=== PATIENT | female | born 1995 | race Caucasian/White ===

== ENCOUNTER 2017-01-01 22:33 | Emergency (ER) | payer OTHER ==
--- NOTE | 2017-01-01 22:49 | PDOC ---
History of Present Illness - General History Source: Patient Exam Limitations: No Limitations - History of Present Illness Initial Comments: 01/01/17 23:29 The patient is a 21 year old female presenting with her mother, with no significant past medical history, who presents to the emergency department with headache and fever for the past 2 days. She describes her headache as bilateral , ranging from mild to moderate, without radiation or modifying factors. She denies a history of migraines. She denies taking anything for the pain. She reports that her fever is subjective. The patient denies chest pain, shortness of breath and dizziness. Denies chills , nausea, vomit, diarrhea and constipation. Allergies: None Past surgical history: Appendectomy Social history: No alcohol, tobacco or drug use reported <Frandy Gupta - Last Filed: 01/01/17 23:28> <Chasidy Puri - Last Filed: 01/02/17 03:20> - General Chief Complaint: Headache Stated Complaint: HEADACHE Time Seen by Provider: 01/01/17 22:48 Past History <Frandy Gupta - Last Filed: 01/01/17 23:28> - Past Medical History Anemia: No Asthma: No Diabetes: No HTN: No - Surgical History Appendectomy: Yes - Immunization History TDAP Vaccination: Yes Immunization Up to Date: Yes - Psycho/Social/Smoking Cessation Hx Anxiety: No Suicidal Ideation: No Smoking Status: No Smoking History: Never smoked Have you smoked in the past 12 months: No Number of Cigarettes Smoked Daily: 0 Information on smoking cessation initiated: No Hx Alcohol Use: No Drug/Substance Use Hx: No Substance Use Type: None <Chasidy Puri - Last Filed: 01/02/17 03:20> - Past Medical History Allergies/Adverse Reactions: Allergies Allergy/AdvReac Type Severity Reaction Status Date / Time No Known Allergies Allergy Verified 01/01/17 22:35 Home Medications: Ambulatory Orders No Home Medications 0 dose .ROUTE UTDICT 09/05/12 Ibuprofen 800 mg PO TID #30 tablet 08/31/16 Ondansetron [Zofran *Odt*] 4 mg SL TID #30 od.tablet 08/31/16 Amox-Tr/K Cl [Augmentin - 875Mg Tablet] 1 tab PO BID #20 tablet 01/02/17 Review of Systems - Review of Systems Able to Perform ROS?: Yes Comments:: 01/01/17 23:29 GENERAL/CONSTITUTIONAL: (+)Fever. No chills. No weakness. HEAD, EYES, EARS, NOSE AND THROAT: No change in vision. No ear pain or discharge. No sore throat. CARDIOVASCULAR: No chest pain or shortness of breath RESPIRATORY: No cough, wheezing, or hemoptysis. GASTROINTESTINAL: No nausea, vomiting, diarrhea or constipation. GENITOURINARY: No dysuria, frequency, or change in urination. MUSCULOSKELETAL: No joint or muscle swelling or pain. No neck or back pain. SKIN: No rash NEUROLOGIC: (+)Headache. No vertigo, loss of consciousness, or change in strength/sensation. ENDOCRINE: No increased thirst. No abnormal weight change HEMATOLOGIC/LYMPHATIC: No anemia, easy bleeding, or history of blood clots. ALLERGIC/IMMUNOLOGIC: No hives or skin allergy. <Frandy Gupta - Last Filed: 01/01/17 23:28> *Physical Exam - Vital Signs Last Vital Signs Temp Pulse Resp BP Pulse Ox 98.9 F 86 17 141/82 100 01/01/17 22:35 01/01/17 22:35 01/01/17 22:35 01/01/17 22:35 01/01/17 22:35 - Physical Exam Comments: 01/01/17 23:32 GENERAL: Awake, alert, and fully oriented, in no acute distress HEAD: No signs of trauma, normocephalic, atraumatic EYES: PERRLA, EOMI, sclera anicteric, conjunctiva clear ENT: Auricles normal inspection, hearing grossly normal, nares patent, oropharynx clear without exudates. Moist mucosa NECK: Normal ROM, supple, no lymphadenopathy, JVD, or masses LUNGS: No distress, speaks full sentences, clear to auscultation bilaterally HEART: Regular rate and rhythm, normal S1 and S2, no murmurs, rubs or gallops, peripheral pulses normal and equal bilaterally. ABDOMEN: Soft, nontender, normoactive bowel sounds. No guarding, no rebound. No masses EXTREMITIES: Normal inspection, Normal range of motion, no edema. No clubbing or cyanosis. NEUROLOGICAL: Cranial nerves II through XII grossly intact. Normal speech, normal gait, no focal sensorimotor deficits SKIN: Warm, Dry, normal turgor, no rashes or lesions noted. <Frandy Gupta - Last Filed: 01/01/17 23:28> - Vital Signs Last Vital Signs Temp Pulse Resp BP Pulse Ox 98.9 F 86 17 141/82 100 01/01/17 22:35 01/01/17 22:35 01/01/17 22:35 01/01/17 22:35 01/01/17 22:35 <Chasidy Puri - Last Filed: 01/02/17 03:20> ED Treatment Course - LABORATORY CBC & Chemistry Diagram: 01/01/17 23:20 01/02/17 01:13 <Chasidy Puri - Last Filed: 01/02/17 03:20> Medical Decision Making - Medical Decision Making 01/02/17 03:08 21-year-old female presents with 2 days of nasal congestion, headache, fever Medical history noncontributory No known allergies Patient is alert and oriented 3, ambulating with ease, no rigidity, no photophobia Date nontraumatic, normocephalic Eyes pupils equal, reactive to light and accommodation, eomi Oropharynx is erythematous with no significant exudates Oropharynx, uvula is midline Tenderness over the maxillary sinuses Nares significant congestion Neck soft, no significant cervical radiculopathy, no nuchal rigidity Lungs are clear to auscultation Slight tachycardia Abdomen soft, nontender Extremities no edema, no cellulitis Skin there is no petechiae Neuro no gross focal neural deficits Headache resolved with IV fluids and Toradol Influenza negative- Rapid strep was negative IMP: ,sinusitis,URI <Chasidy Puri - Last Filed: 01/02/17 03:20> *DC/Admit/Observation/Transfer - Attestations Scribe Attestion: 01/01/17 23:32 Documentation prepared by Frandy Gupta, acting as medical transcription supervisor for Chasidy Puri MD <Frandy Gupta - Last Filed: 01/01/17 23:28> <Chasidy Puri - Last Filed: 01/02/17 03:20> Diagnosis at time of Disposition: URI (upper respiratory infection) Qualifiers: URI type: unspecified URI Qualified Code(s): J06.9 - Acute upper respiratory infection, unspecified Sinusitis Qualifiers: Sinusitis location: unspecified location Chronicity: acute Recurrence: non- recurrent Qualified Code(s): J01.90 - Acute sinusitis, unspecified - Discharge Dispostion Disposition: HOME Condition at time of disposition: Stable - Prescriptions Prescriptions: Amox-Tr/K Cl [Augmentin - 875Mg Tablet] 1 tab PO BID #20 tablet - Referrals Referrals: Nette Fields MD [Primary Care Provider] - - Patient Instructions Printed Discharge Instructions: DI for Sinusitis Additional Instructions: -please slate picker your prescription at your pharmacy -rest -take tylenol or motrin for fever and body aches -drink plenty of water -return for worsening symptoms including headache not relived with motrin or tylenol, persistent vomiting
[2017-01-01 22:50] VITALS: BMI 35.9
[2017-01-01] MEDS ORDERED: METOCLOPRAMIDE HCL INJECTION 10 MG/2 ML VIAL IVPB ONE (23:07)
[2017-01-01] MEDS ORDERED: SODIUM CHLORIDE 1,000 ML IV STA (23:07)
[2017-01-01] MEDS ORDERED: KETOROLAC TROMETHAMINE 30 MG/1 ML VIAL IVPUSH ONE (23:07)
[2017-01-01] MEDS ORDERED: KETOROLAC TROMETHAMINE 30 MG/1 ML VIAL ONE (23:32)
[2017-01-01] MEDS ORDERED: METOCLOPRAMIDE HCL INJECTION 10 MG/2 ML VIAL ONE (23:32)
[2017-01-01 23:39] LABS: BASOPHIL 0.5 % (0-2.0); EOSINOPHIL 0.2 % (0-4.5); MCH 28.6 pg (25.7-33.7); MCHC 33.1 g/dl (32.0-36.0); MEAN CELL VOLUME 86.6 fl (80-96); MEAN PLT VOLUME 8.7 fl (7.5-11.1); NEUTROPHILS 77.5 % (42.8-82.8); PLATELET COUNT 245 K/MM3 (134-434); RDW 13.9 % (11.6-15.6); WHITE BLOOD COUNT 16.6 K/mm3 (4.0-10.0)
[2017-01-01 23:52] LABS: URINE APPEARANCE CLEAR; URINE BILIRUBIN NEGATIVE (NEGATIVE); URINE COLOR YELLOW; URINE GLUCOSE (UA) NEGATIVE (NEGATIVE); URINE KETONE NEGATIVE (NEGATIVE); URINE LEUK ESTERASE NEGATIVE (NEGATIVE); URINE NITRITE NEGATIVE (NEGATIVE); URINE PROTEIN NEGATIVE (NEGATIVE); URINE UROBILINOGEN NEGATIVE E.U./dl (0.2-1.0)
[2017-01-01 23:55] LABS: URINE BLOOD 2+ (NEGATIVE)
[2017-01-02 00:01] LABS: URINE BACTERIA RARE /hpf (NONE SEEN); URINE MUCUS MODERATE; URINE RBC 24 /hpf (0-3); URINE WBC 2 /hpf (3-5)
[2017-01-02 01:45] LABS: ALBUMIN 3.2 g/dl (3.4-5.0); ALK PHOS 80 U/L (45-117); ANION GAP 9 (8-16); BILIRUBIN,TOTAL 0.5 mg/dL (0.2-1.0); CALCIUM 8.1 mg/dL (8.5-10.1); CO2 25 mmol/L (21-32); COCKROFT - GAULT 244.1795; CREATININE 0.5 mg/dL (0.55-1.02); GLUCOSE,RANDOM 87 mg/dL (74-106); SGOT/AST 15 U/L (15-37); SGPT/ALT 25 U/L (12-78); TOT PROT 6.2 g/dl (6.4-8.2)
[2017-01-02] MEDS ORDERED: CEFTRIAXONE 1 GM in DEXTROSE 5%-WATER - 100 ML IVPB ONE (02:58)
[2017-01-02] MEDS ORDERED: cefTRIAXone SODIUM 1 GM VIAL ONE (03:19)
[2017-01-02 03:34] VITALS: BP 119/70; PULSE 88; TEMP 98.3
== END 2017-01-02 03:33 | disposition home or self-care (01) ==
LOC: JER 22:33
PROC: 3E033GC Introduction of Other Therapeutic Substance into Peripheral Vein, Percutaneous Approach (ICD-10-PCS; principal; 2017-01-01)
PROC: 3E033GC Introduction of Other Therapeutic Substance into Peripheral Vein, Percutaneous Approach (ICD-10-PCS; 2017-01-01)
PROC: 3E03329 Introduction of Other Anti-infective into Peripheral Vein, Percutaneous Approach (ICD-10-PCS; 2017-01-01)
PROC: 3E0333Z Introduction of Anti-inflammatory into Peripheral Vein, Percutaneous Approach (ICD-10-PCS; 2017-01-01)
DX: J01.90 Acute sinusitis, unspecified (principal); J06.9 Acute upper respiratory infection, unspecified
CPT/HCPCS: 36415; 80053; 81003; 81015; 84703; 85025; 87070; 87430; 87804; 96365; 96375; 99282-25

== ENCOUNTER 2017-01-25 11:36 | Emergency (ER) | payer OTHER ==
[2017-01-25 11:46] VITALS: TEMP 98.1; BMI 34.7
[2017-01-25] MEDS ORDERED: METOCLOPRAMIDE HCL INJECTION 10 MG/2 ML VIAL ONE (12:46)
[2017-01-25] MEDS ORDERED: METOCLOPRAMIDE HCL INJECTION 10 MG/2 ML VIAL IVPB ONE (13:01)
[2017-01-25] MEDS ORDERED: SODIUM CHLORIDE 0.9% 1000 ML INFUS.BAG IV ONE (13:04)
--- NOTE | 2017-01-25 13:36 | PDOC ---
History of Present Illness - General Chief Complaint: Vomiting/Diarrhea Stated Complaint: VOMITING Time Seen by Provider: 01/25/17 12:39 History Source: Patient Exam Limitations: No Limitations - History of Present Illness Initial Comments: 01/25/17 13:31 This patient is a 21-year-old female with no significant past medical history presented to emergency department with a complaint of nausea, vomiting, diarrhea. Patient states she was in her usual state of health until midnight last night when she noted dyspepsia and vomited. She was able to sleep through the night but awoke this morning stating she felt nauseous here In total she had 3 episodes of nonbilious emesis. No blood. Patient has had 2 episodes of diarrhea, nonbloody and nonmucoid. No recent travel. No ill contacts. PMH: Denies PSH: Appendectomy at age 13 Medications: Denies A LL: NKDA Social: Denies alcohol drug or cigarette use GENERAL/CONSTITUTIONAL: No: fever, chills, weakness, loss of appetite. HEAD, EYES, EARS, NOSE AND THROAT: No: change in vision, ear pain, discharge, sore throat, throat swelling. CARDIOVASCULAR: No: chest pain, lightheadedness, palpitations, syncope RESPIRATORY: No: cough, shortness of breath, wheezing, hemoptysis, stridor. GASTROINTESTINAL: Yes: nausea, vomiting, diarrhea No: abdominal pain GENITOURINARY: No: dysuria, hematuria, frequency, urgency, flank pain. MUSCULOSKELETAL: No: back pain, neck pain, joint pain, muscle swelling or pain SKIN AND BREASTS: No: lesions, pallor, rash or easy bruising. NEUROLOGIC: No: headache, vertigo, paresthesias, weakness ENDOCRINE: No: unexplained weight gain or loss HEMATOLOGIC/LYMPHATIC: No: anemia, easy bleeding, swelling nodes. GENERAL: The patient is in no acute distress. HEAD: Normal with no signs of trauma. EYES: PERRLA, EOMI, sclera anicteric, conjunctiva clear. ENT: Ears normal, nares patent, oropharynx clear without exudates. Dry mucous membranes. NECK: Normal range of motion, supple without lymphadenopathy, JVD, or masses. LUNGS: Breath sounds equal, clear to auscultation bilaterally. No wheezes, and no crackles. HEART:Regular rate and rhythm, normal S1 and S2 without murmur, rub or gallop. ABDOMEN: Soft, nontender, normoactive bowel sounds. No guarding, no rebound. EXTREMITIES: Normal range of motion, no edema. No clubbing or cyanosis. No erythema, or tenderness. NEUROLOGICAL: Cranial nerves II through XII grossly intact. Normal speech. No focal neurological deficits. MUSCULOSKELETAL: Back non-tender to palpation, no CVA tenderness SKIN: Warm, Dry, normal turgor, no rashes or lesions noted. 01/27/17 00:31 Past History - Past Medical History Allergies/Adverse Reactions: Allergies Allergy/AdvReac Type Severity Reaction Status Date / Time No Known Allergies Allergy Verified 01/25/17 11:43 Home Medications: Ambulatory Orders Ondansetron HCl [Zofran] 4 mg PO BID PRN #10 tablet 01/25/17 Anemia: No Asthma: No Diabetes: No HTN: No Other medical history: NONE - Surgical History Appendectomy: Yes - Reproductive History Is Patient Now?: No - Immunization History TDAP Vaccination: Yes Immunization Up to Date: Yes - Psycho/Social/Smoking Cessation Hx Anxiety: No Suicidal Ideation: No Smoking Status: No Smoking History: Never smoked Have you smoked in the past 12 months: No Number of Cigarettes Smoked Daily: 0 Information on smoking cessation initiated: No Hx Alcohol Use: No Drug/Substance Use Hx: No Substance Use Type: None *Physical Exam - Vital Signs Last Vital Signs Temp Pulse Resp BP Pulse Ox 98.1 F 88 18 118/52 100 01/25/17 11:43 01/25/17 11:43 01/25/17 11:43 01/25/17 11:43 01/25/17 11:43 ED Treatment Course - LABORATORY CBC & Chemistry Diagram: 01/25/17 13:50 01/25/17 13:50 - Medications Given in the ED: ED Medications Discontinued Medications Generic Name Dose Route Start Last Admin Trade Name Freq PRN Reason Stop Dose Admin Metoclopramide HCl 10 mg 01/25/17 13:01 01/25/17 13:02 Reglan Injection - IVPB 01/25/17 13:02 10 mg NOW ONE Administration Sodium Chloride 1,000 ml 01/25/17 13:04 01/25/17 13:05 Normal Saline - IV 01/25/17 13:05 1,000 ml NOW ONE Administration Medical Decision Making - Medical Decision Making 01/25/17 13:36 DD: colitis, enteritis, gastroenteritis, cholecystitis, gastritis, gastric ulcer Will do basic labs Will give Zofran Will give IV Fluids Will re assess 01/25/17 14:31 Laboratory Tests 01/25/17 01/25/17 13:40 13:50 WBC 8.5 D Hgb 12.9 Hct 38.4 Plt Count 289 Urine Blood 2+ H Urine Nitrite Negative Urine RBC 140 Urine WBC 3 01/25/17 15:06 Laboratory Tests 01/25/17 13:50 Sodium 144 Potassium 4.2 Chloride 109 H Carbon Dioxide 26 BUN 8 D Creatinine 0.6 Random Glucose 87 AST 25 D ALT 38 D Albumin 3.6 Lipase 84 Pt states she feels better Will discharge to home can discharge with Zofran Clinical Impression: Gastroenteritis 01/27/17 00:31 *DC/Admit/Observation/Transfer Diagnosis at time of Disposition: Gastroenteritis - Discharge Dispostion Disposition: HOME Condition at time of disposition: Stable Admit: No - Prescriptions Prescriptions: Ondansetron HCl [Zofran] 4 mg PO BID PRN #10 tablet PRN Reason: Nausea - Referrals Referrals: Nette Fields MD [Primary Care Provider] - - Patient Instructions Printed Discharge Instructions: DI for Viral Gastroenteritis -- Adult, Gastroenteritis Diet Additional Instructions: Thank you for coming in to the ER today Please return to the ER for any other concerns or complaints Please modify your diet to avoid heavy, greasy foods Please monitor yourself for fevers - Post Discharge Activity Work/School Note: Back to Work
[2017-01-25 13:58] LABS: BASOPHIL 0.8 % (0-2.0); EOSINOPHIL 0.5 % (0-4.5); MCH 29.3 pg (25.7-33.7); MCHC 33.6 g/dl (32.0-36.0); MEAN CELL VOLUME 87.2 fl (80-96); MEAN PLT VOLUME 8.9 fl (7.5-11.1); NEUTROPHILS 72.7 % (42.8-82.8); PLATELET COUNT 289 K/MM3 (134-434); RDW 14.4 % (11.6-15.6); WHITE BLOOD COUNT 8.5 K/mm3 (4.0-10.0)
[2017-01-25 14:04] LABS: URINE APPEARANCE CLEAR; URINE BILIRUBIN NEGATIVE (NEGATIVE); URINE COLOR LTYELLOW; URINE GLUCOSE (UA) NEGATIVE (NEGATIVE); URINE KETONE NEGATIVE (NEGATIVE); URINE LEUK ESTERASE NEGATIVE (NEGATIVE); URINE NITRITE NEGATIVE (NEGATIVE); URINE PROTEIN NEGATIVE (NEGATIVE); URINE UROBILINOGEN NEGATIVE E.U./dl (0.2-1.0)
[2017-01-25 14:05] LABS: URINE BLOOD 2+ (NEGATIVE)
[2017-01-25 14:07] LABS: URINE MUCUS RARE; URINE RBC 140 /hpf (0-3); URINE WBC 3 /hpf (3-5)
[2017-01-25 14:34] LABS: ALBUMIN 3.6 g/dl (3.4-5.0); ALK PHOS 92 U/L (45-117); ANION GAP 9 (8-16); BILIRUBIN,TOTAL 0.3 mg/dL (0.2-1.0); CALCIUM 8.9 mg/dL (8.5-10.1); CO2 26 mmol/L (21-32); COCKROFT - GAULT 203.4815; CREATININE 0.6 mg/dL (0.55-1.02); GLUCOSE,RANDOM 87 mg/dL (74-106); SGOT/AST 25 U/L (15-37); SGPT/ALT 38 U/L (12-78); TOT PROT 7.3 g/dl (6.4-8.2)
[2017-01-25 16:07] VITALS: BP 117/74; PULSE 74
== END 2017-01-25 16:06 | disposition home or self-care (01) ==
LOC: JER 11:36
PROC: 3E033GC Introduction of Other Therapeutic Substance into Peripheral Vein, Percutaneous Approach (ICD-10-PCS; principal; 2017-01-25)
DX: K52.9 Noninfective gastroenteritis and colitis, unspecified (principal)
CPT/HCPCS: 36415; 80053; 81003; 81015; 83690; 84703; 85025; 96374; 99283-25

== ENCOUNTER 2017-03-22 13:40 | Emergency (ER) | payer OTHER ==
[2017-03-22 13:47] VITALS: BMI 33.6
--- NOTE | 2017-03-22 14:04 | PDOC ---
History of Present Illness - General Chief Complaint: Headache Stated Complaint: FEVER/HEADACHE/WEAKNESS/BACK PAIN Time Seen by Provider: 03/22/17 14:03 Past History - Past Medical History Allergies/Adverse Reactions: Allergies Allergy/AdvReac Type Severity Reaction Status Date / Time No Known Allergies Allergy Verified 03/22/17 13:47 Home Medications: Ambulatory Orders NK [No Known Home Medication] 03/22/17 Anemia: No Asthma: No Diabetes: No HTN: No - Surgical History Appendectomy: Yes - Immunization History TDAP Vaccination: Yes Immunization Up to Date: Yes - Psycho/Social/Smoking Cessation Hx Anxiety: No Suicidal Ideation: No Smoking Status: No Smoking History: Never smoked Have you smoked in the past 12 months: No Number of Cigarettes Smoked Daily: 0 Information on smoking cessation initiated: No Hx Alcohol Use: No Drug/Substance Use Hx: No Substance Use Type: None *Physical Exam - Vital Signs Last Vital Signs Temp Pulse Resp BP Pulse Ox 102.7 F H 118 H 18 125/85 99 03/22/17 13:44 03/22/17 13:44 03/22/17 13:44 03/22/17 13:44 03/22/17 13:44 ED Treatment Course - LABORATORY CBC & Chemistry Diagram: 03/22/17 15:50 03/22/17 15:50 *DC/Admit/Observation/Transfer - Referrals Referrals: Nette Fields MD [Primary Care Provider] -
--- NOTE | 2017-03-22 14:34 | PDOC ---
Attending Attestation - Resident Resident Name: Gem Monte - ED Attending Attestation I have performed the following: I have examined & evaluated the patient, The case was reviewed & discussed with the resident, I agree w/resident's findings & plan, Exceptions are as noted - HPI HPI: 03/22/17 16:40 21y F presenting with fever, pounding mid headache that is nonradiating, lower back pain and body aches for the past few days. pt dnies any neck pain, stiffness, numbness/tingling/weakness, cough, nasal congestion, dysuria, hematuria. vitals noted fore fever/tachycardia. on exam pt is well appearing, in no acute distress. negative brudzinski/kernigs. pt has mild tenderness in the lower back without fluctuance, erythema, induration. suspect viral syndrome consider possible pyelonephritis also consider meningitis with headache/fever, however no menigitic symtoms. awaiting lab work 03/22/17 17:48 pt signed out to dr. Raymond to fu with results and erassess the pt - Physicial Exam PE: 03/23/17 17:49 see above - Medical Decision Making 03/23/17 17:49 see above
[2017-03-22] MEDS ORDERED: ACETAMINOPHEN 325 MG TABLET (FP) PO ONE (14:40)
[2017-03-22] MEDS ORDERED: SODIUM CHLORIDE 1,000 ML IV ONE ×2 (14:42→17:39)
[2017-03-22] MEDS ORDERED: ACETAMINOPHEN 325 MG TABLET (FP) ONE (15:38)
--- NOTE | 2017-03-22 15:59 | PDOC ---
History of Present Illness - General Chief Complaint: Headache Stated Complaint: FEVER/HEADACHE/WEAKNESS/BACK PAIN Time Seen by Provider: 03/22/17 14:03 History Source: Patient Exam Limitations: No Limitations - History of Present Illness Initial Comments: This is a 21 yo female with h/o seasonal allergies and sinus headache who presents with headache, low back pain, and fever to 101 at home worsening for the past four days. She notes 9/10 throbbing headache to the whole top of her head radiating down to the low back, which is worsened by light and noise. It is not positional and not worse in the morning when she awakens. She notes that the back pain is located in the spine, and she has associated numbness of the outside of the thighs on both sides. She denies any vision changes, rash, urinary retention, incontinence of bladder or bowel, focal weakness, tingling, or additional numbness. She also denies any other recent symptoms of illness ( no cough, sore throat, runny nose, shortness of breath, chest pain, nausea, vomiting, abdominal pain, constipation, or diarrhea except for one minor episode of diarrhea this morning). She has had no recent travel outside of the [place], she was [place] in the , she is up to date on all immunizations, and she has had no recent sick contacts. Past History - Travel Traveled outside of the country in the last 30 days: No Close contact w/someone who was outside of country & ill: No - Past Medical History Allergies/Adverse Reactions: Allergies Allergy/AdvReac Type Severity Reaction Status Date / Time No Known Allergies Allergy Verified 03/22/17 13:47 Home Medications: Ambulatory Orders NK [No Known Home Medication] 03/22/17 Anemia: No Asthma: No Diabetes: No HTN: No - Surgical History Appendectomy: Yes - Immunization History TDAP Vaccination: Yes Immunization Up to Date: Yes - Psycho/Social/Smoking Cessation Hx Anxiety: No Suicidal Ideation: No Smoking Status: No Smoking History: Never smoked Have you smoked in the past 12 months: No Number of Cigarettes Smoked Daily: 0 Information on smoking cessation initiated: No Hx Alcohol Use: No Drug/Substance Use Hx: No Substance Use Type: None Review of Systems - Review of Systems Able to Perform ROS?: Yes Constitutional: Yes: Chills, Fever, Loss of Appetite, Malaise. No: Unexplained wgt Loss HEENTM: No: Eye Pain, Blurred Vision, Recent change in vision, Double Vision, Nose Congestion, Throat Pain Respiratory: No: Cough, Shortness of Breath Cardiac (ROS): Yes: Lightheadedness (mild when she stands). No: Chest Pain, Palpitations ABD/GI: Yes: Diarrhea (one mild episode today only). No: Constipated, Nausea, Vomiting : No: Burning, Dysuria, Incontinence, Pain, Urgency Musculoskeletal: Yes: Back Pain. No: Neck Pain Integumentary: No: Bruising, Rash Neurological: Yes: Headache, Numbness (outside of thighs). No: Tingling, Weakness Endocrine: No: Unexplained Weight Gain, Unexplained Weight Loss *Physical Exam - Vital Signs Last Vital Signs Temp Pulse Resp BP Pulse Ox 102.7 F H 118 H 18 125/85 99 03/22/17 13:44 03/22/17 13:44 03/22/17 13:44 03/22/17 13:44 03/22/17 13:44 - Physical Exam General Appearance: Yes: Nourished, Appropriately Dressed, Mild Distress, Other (alert, oriented, conversive and pleasant young woman answering appropriately) HEENT: positive: EOMI, Normal Voice, Hearing Grossly Normal, Other (no frontal or maxillary tenderness to palpation or percussion). negative: Scleral Icterus (R), Scleral Icterus (L), Nasal Congestion Neck: positive: Trachea midline, Supple, Tender midline. negative: Tender, Rigid, Decreased range of motion, Lymphadenopathy (R), Lymphadenopathy (L) Respiratory/Chest: positive: Lungs Clear, Normal Breath Sounds. negative: Respiratory Distress, Crackles, Rhonchi, Stridor, Wheezing Cardiovascular: positive: Regular Rhythm, Regular Rate. negative: Murmur Gastrointestinal/Abdominal: positive: Normal Bowel Sounds, Soft. negative: Tender, Organomegaly, Pulsatile Mass, Guarding Musculoskeletal: positive: Normal Inspection, Vertebral Tenderness (mild lumbar) . negative: Decreased Range of Motion Extremity: positive: Normal Capillary Refill, Normal Inspection, Normal Range of Motion. negative: Tender, Cyanosis Integumentary: positive: Normal Color, Dry, Warm. negative: Erythema, Rash, Bruising Neurologic: positive: sales representative groceries II-XII NML intact, Fully Oriented, Alert, Normal Mood/ Affect, Normal Response, Motor Strength 5/5 ED Treatment Course - LABORATORY CBC & Chemistry Diagram: 03/22/17 15:50 03/22/17 15:50 Comment: ESR 44 - ADDITIONAL ORDERS Additional order review: CT head without e/o acute intracranial pathology. Medical Decision Making - Medical Decision Making 21 yo female with 4 day h/o fever, headache, and back pain. Without any other symptoms of illness (no cold sxs, UTI sxs, viral syndome sxs except diarrhea x1 today). Exam with mild tenderness to palpation of midline lumbar spine, no neurological exam abnormalities. Concerning symptoms for AL include the patient's fever, but no additional red flags. Ddx includes AL secondary to fever, sinusitis, migraine, tension AL, meningitis , encephalitis, viral syndrome. Ordered are CBC, CMP, beta-hCG, UA, head CT without contrast. Patient self-dosed with Motrin at about 12:20pm, so given Tylenol initially in the ED. 03/22/17 18:34 AL improved initially but Pt reports recurrence, given Reglan and Motrin is ordered. ESR is 44 and WBC is 10.5, opting to move forward with head CT. 03/22/17 19:19 Pt signed out to excellent Dr. Ezra Venegas. *DC/Admit/Observation/Transfer Diagnosis at time of Disposition: Headache Qualifiers: Headache type: unspecified Headache chronicity pattern: acute headache Intractability: not intractable Qualified Code(s): R51 - Headache Fever Qualifiers: Fever type: unspecified Qualified Code(s): R50.9 - Fever, unspecified Back pain Qualifiers: Back pain location: low back pain Chronicity: acute Back pain laterality: unspecified Sciatica presence: unspecified whether sciatica present Qualified Code(s): M54.5 - Low back pain - Referrals Referrals: Nette Fields MD [Primary Care Provider] - - Attestations Physician Attestion: 03/22/17 16:10 I, Dr. Gem Monte, attest that this document has been prepared under my direction and personally reviewed by me in its entirety. I further attest, that it accurately reflects all work, treatment, procedures and medical decision -making performed by me.
[2017-03-22 16:00] LABS: BASOPHIL 0.6 % (0-2.0); EOSINOPHIL 0.1 % (0-4.5); MCH 28.9 pg (25.7-33.7); MCHC 33.9 g/dl (32.0-36.0); MEAN CELL VOLUME 85.3 fl (80-96); MEAN PLT VOLUME 8.4 fl (7.5-11.1); NEUTROPHILS 82.6 % (42.8-82.8); PLATELET COUNT 229 K/MM3 (134-434); RDW 13.8 % (11.6-15.6); WHITE BLOOD COUNT 10.5 K/mm3 (4.0-10.0)
[2017-03-22 16:18] LABS: INR 1.17 (0.82-1.09); PROTHROMBIN TIME (PATIENT) 12.9 SEC (9.98-11.88)
[2017-03-22 17:14] LABS: URINE APPEARANCE SLCLOUDY; URINE BILIRUBIN NEGATIVE (NEGATIVE); URINE BLOOD 3+ (NEGATIVE); URINE COLOR YELLOW; URINE GLUCOSE (UA) NEGATIVE (NEGATIVE); URINE KETONE NEGATIVE (NEGATIVE); URINE LEUK ESTERASE TRACE (NEGATIVE); URINE NITRITE NEGATIVE (NEGATIVE); URINE UROBILINOGEN NEGATIVE mg/dL (0.2-1.0)
[2017-03-22] MEDS ORDERED: METOCLOPRAMIDE HCL INJECTION 10 MG/2 ML VIAL IVPUSH ONE (17:38)
[2017-03-22 17:43] LABS: URINE PROTEIN 1+ (NEGATIVE)
[2017-03-22 17:51] LABS: URINE BACTERIA RARE /hpf (NONE SEEN); URINE MUCUS FEW; URINE RBC 10 /hpf (0-3); URINE WBC 8 /hpf (3-5)
[2017-03-22] MEDS ORDERED: IBUPROFEN 600 MG TABLET (FP) PO ONE ×2 (18:13→20:55)
[2017-03-22] MEDS ORDERED: METOCLOPRAMIDE HCL INJECTION 10 MG/2 ML VIAL ONE (18:14)
[2017-03-22 19:38] VITALS: BP 132/81; PULSE 90; TEMP 100
--- NOTE | 2017-03-22 19:46 | PDOC ---
*Physical Exam - Vital Signs Last Vital Signs Temp Pulse Resp BP Pulse Ox 102.7 F H 118 H 18 125/85 99 03/22/17 13:44 03/22/17 13:44 03/22/17 13:44 03/22/17 13:44 03/22/17 13:44 ED Treatment Course - LABORATORY CBC & Chemistry Diagram: 03/22/17 15:50 03/22/17 15:50 - ADDITIONAL ORDERS Additional order review: Laboratory Results 03/22/17 03/22/17 16:08 15:50 INR 1.17 H Urine Color Yellow Urine Appearance Slcloudy Urine pH 5.0 D Urine Protein 1+ H Urine Glucose (UA) Negative Urine Ketones Negative Urine Blood 3+ H Urine Nitrite Negative Urine Bilirubin Negative Urine Urobilinogen Negative Ur Leukocyte Esterase Trace Urine RBC 10 Urine WBC 8 Ur Epithelial Cells Rare Urine Bacteria Rare Urine Mucus Few Urine HCG, Qual Negative 03/22/17 15:50 RBC 4.76 MCV 85.3 MCHC 33.9 RDW 13.8 MPV 8.4 Neutrophils % 82.6 Lymphocytes % 7.8 L D Monocytes % 8.9 Eosinophils % 0.1 Basophils % 0.6 - Medications Given in the ED: ED Medications Discontinued Medications Generic Name Dose Route Start Last Admin Trade Name Freq PRN Reason Stop Dose Admin Acetaminophen 650 mg 03/22/17 14:40 03/22/17 15:50 Tylenol - PO 03/22/17 14:41 650 mg ONCE ONE Administration Sodium Chloride 1,000 mls @ 1,000 mls/hr 03/22/17 14:42 03/22/17 15:40 Normal Saline - IV 03/22/17 15:41 1,000 mls/hr .Q1H ONE Administration Sodium Chloride 1,000 mls @ 1,000 mls/hr 03/22/17 17:39 03/22/17 18:23 Normal Saline - IV 03/22/17 18:38 1,000 mls/hr .Q1H ONE Administration Metoclopramide HCl 10 mg 03/22/17 17:38 03/22/17 18:23 Reglan Injection - IVPUSH 03/22/17 17:39 10 mg ONCE ONE Administration Medical Decision Making - Medical Decision Making 03/22/17 19:[address] Monte. Patient came in with temp 103, brought down w / tylenol, currently deciding on next action for white count and elevated ESR. 03/22/17 19:49 03/22/17 22:57 LP performed to R/O meningitis 03/23/17 00:11 LP Normal - discharging to home with motrin for pain control *DC/Admit/Observation/Transfer Diagnosis at time of Disposition: Headache Qualifiers: Headache type: unspecified Headache chronicity pattern: acute headache Intractability: not intractable Qualified Code(s): R51 - Headache Fever Qualifiers: Fever type: unspecified Qualified Code(s): R50.9 - Fever, unspecified Back pain Qualifiers: Back pain location: low back pain Chronicity: acute Back pain laterality: unspecified Sciatica presence: unspecified whether sciatica present Qualified Code(s): M54.5 - Low back pain - Discharge Dispostion Disposition: HOME - Prescriptions Prescriptions: Ibuprofen [Motrin -] 600 mg PO QID PRN #20 tablet PRN Reason: Pain Level 6-10 - Referrals Referrals: Nette Fields MD [Primary Care Provider] - - Patient Instructions Printed Discharge Instructions: DI for Migraine, Migraine -- Adult - Post Discharge Activity - Attestations Physician Attestion: 03/23/17 00:12 I, Dr. Ezra Venegas, attest that this document has been prepared under my direction and personally reviewed by me in its entirety. I further attest, that it accurately reflects all work, treatment, procedures and medical decision -making performed by me. Procedures - Lumbar Puncture Indication: Meningitis CT Scan: Yes Betadine Prep: Yes Position: Sitting Site: L4-L51 Local Anesthesia: 1% Lidocaine with epi Volume(ml): 5 ((Without Epi)) Lumbar Puncture Kit: Adult Traumatic Tap: Yes Tubes Obtained: 4 Clear Fluid: Yes Complications: No
[2017-03-22 20:00] LABS: ALBUMIN 3.7 g/dl (3.4-5.0); ANION GAP 8 (8-16); BILIRUBIN,TOTAL 0.4 mg/dL (0.2-1.0); CALCIUM 8.8 mg/dL (8.5-10.1); CO2 24 mmol/L (21-32); CREATININE 0.8 mg/dL (0.55-1.02); GLUCOSE,RANDOM 98 mg/dL (74-106); SGOT/AST 31 U/L (15-37); SGPT/ALT 42 U/L (12-78); TOT PROT 8.1 g/dl (6.4-8.2)
[2017-03-22 20:01] LABS: ALK PHOS 98 U/L (45-117)
--- NOTE | 2017-03-22 22:50 | PDOC ---
*Physical Exam - Vital Signs Last Vital Signs Temp Pulse Resp BP Pulse Ox 100 F H 90 18 132/81 100 03/22/17 18:35 03/22/17 18:35 03/22/17 18:35 03/22/17 18:35 03/22/17 18:35 ED Treatment Course - LABORATORY CBC & Chemistry Diagram: 03/22/17 15:50 03/22/17 15:50 - ADDITIONAL ORDERS Additional order review: Laboratory Results 03/22/17 03/22/17 03/22/17 16:08 15:50 15:50 INR 1.17 H Sodium 136 Potassium 3.9 Chloride 104 Carbon Dioxide 24 Anion Gap 8 BUN 6 L D Creatinine 0.8 D Creat Clearance w eGFR > 60 Random Glucose 98 Calcium 8.8 Total Bilirubin 0.4 D AST 31 D ALT 42 Alkaline Phosphatase 98 Total Protein 8.1 Albumin 3.7 Urine Color Yellow Urine Appearance Slcloudy Urine pH 5.0 D Ur Specific [place] 1.025 Urine Protein 1+ H Urine Glucose (UA) Negative Urine Ketones Negative Urine Blood 3+ H Urine Nitrite Negative Urine Bilirubin Negative Urine Urobilinogen Negative Ur Leukocyte Esterase Trace Urine RBC 10 Urine WBC 8 Ur Epithelial Cells Rare Urine Bacteria Rare Urine Mucus Few Urine HCG, Qual Negative 03/22/17 15:50 RBC 4.76 MCV 85.3 MCHC 33.9 RDW 13.8 MPV 8.4 Neutrophils % 82.6 Lymphocytes % 7.8 L D Monocytes % 8.9 Eosinophils % 0.1 Basophils % 0.6 - Medications Given in the ED: ED Medications Discontinued Medications Generic Name Dose Route Start Last Admin Trade Name Freq PRN Reason Stop Dose Admin Acetaminophen 650 mg 03/22/17 14:40 03/22/17 15:50 Tylenol - PO 03/22/17 14:41 650 mg ONCE ONE Administration Sodium Chloride 1,000 mls @ 1,000 mls/hr 03/22/17 14:42 03/22/17 15:40 Normal Saline - IV 03/22/17 15:41 1,000 mls/hr .Q1H ONE Administration Sodium Chloride 1,000 mls @ 1,000 mls/hr 03/22/17 17:39 03/22/17 18:23 Normal Saline - IV 03/22/17 18:38 1,000 mls/hr .Q1H ONE Administration Ibuprofen 600 mg 03/22/17 18:13 03/22/17 21:09 Motrin - PO 03/22/17 18:14 600 mg ONCE ONE Administration Metoclopramide HCl 10 mg 03/22/17 17:38 03/22/17 18:23 Reglan Injection - IVPUSH 03/22/17 17:39 10 mg ONCE ONE Administration Medical Decision Making - Medical Decision Making 03/22/17 22:44 CBC, BMP 03/22/17 15:50 03/22/17 15:50 CMP Sodium 136 mmol/L (136-145) 03/22/17 15:50 Potassium 3.9 mmol/L (3.5-5.1) 03/22/17 15:50 Chloride 104 mmol/L (98-107) 03/22/17 15:50 Carbon Dioxide 24 mmol/L (21-32) 03/22/17 15:50 Anion Gap 8 (8-16) 03/22/17 15:50 BUN 6 mg/dL (7-18) L D 03/22/17 15:50 Creatinine 0.8 mg/dL (0.55-1.02) D 03/22/17 15:50 Creat Clearance w eGFR > 60 (>60) 03/22/17 15:50 Random Glucose 98 mg/dL (74-106) 03/22/17 15:50 Calcium 8.8 mg/dL (8.5-10.1) 03/22/17 15:50 Total Bilirubin 0.4 mg/dL (0.2-1.0) D 03/22/17 15:50 AST 31 U/L (15-37) D 03/22/17 15:50 ALT 42 U/L (12-78) 03/22/17 15:50 Alkaline Phosphatase 98 U/L (45-117) 03/22/17 15:50 Total Protein 8.1 g/dl (6.4-8.2) 03/22/17 15:50 Albumin 3.7 g/dl (3.4-5.0) 03/22/17 15:50 03/22/17 22:[address] negative. Given the circumstances, with the headache and fever, we had discussed the risks and benefits of performing a lumbar puncture with the patient. The patient agrees for lumbar puncture. The procedure was done in a sterile fashion with the patient sitting up. A 20-gauge was inserted and approximately 8 mL of clearish fluid was obtained from the spine. Fluid was sent to laboratory. If workup is negative, the patient can be discharged home as viral syndrome. *DC/Admit/Observation/Transfer Diagnosis at time of Disposition: Headache Qualifiers: Headache type: unspecified Headache chronicity pattern: acute headache Intractability: not intractable Qualified Code(s): R51 - Headache Fever Qualifiers: Fever type: unspecified Qualified Code(s): R50.9 - Fever, unspecified Back pain Qualifiers: Back pain location: low back pain Chronicity: acute Back pain laterality: unspecified Sciatica presence: unspecified whether sciatica present Qualified Code(s): M54.5 - Low back pain - Referrals Referrals: Nette Fields MD [Primary Care Provider] - - Patient Instructions - Post Discharge Activity
[2017-03-22 23:40] LABS: GLUCOSE,CSF 54 mg/dL (50-80)
[2017-03-22 23:43] LABS: CSF APPEARANCE CLEAR
[2017-03-22 23:44] LABS: CSF COLOR COLORLESS
[2017-03-22 23:45] LABS: CSF RBC 800
[2017-03-22 23:46] LABS: CSF APPEARANCE CLEAR; CSF COLOR COLORLESS; CSF RBC 4
== END 2017-03-23 00:26 | disposition home or self-care (01) ==
LOC: JER 13:40
PROC: 3E033GC Introduction of Other Therapeutic Substance into Peripheral Vein, Percutaneous Approach (ICD-10-PCS; principal; 2017-03-22)
PROC: 3E0337Z Introduction of Electrolytic and Water Balance Substance into Peripheral Vein, Percutaneous Approach (ICD-10-PCS; 2017-03-22)
DX: R50.9 Fever, unspecified (principal); R51 Headache; M54.5 Low back pain
CPT/HCPCS: 36415; 70450-TC; 80053; 81003; 81015; 82945; 84157; 84703; 85025; 85610; 85651; 87040; 87070; 87205; 89050; 96361; 96374; 99283-25

== ENCOUNTER 2017-09-26 09:32 | Emergency (ER) | payer OTHER ==
[2017-09-26 09:39] VITALS: BP 157/85; PULSE 84; TEMP 98.8; BMI 33.6
[2017-09-26] MEDS ORDERED: IBUPROFEN 400 MG TABLET (FP) PO ONE (10:13)
[2017-09-26] MEDS ORDERED: IBUPROFEN 600 MG TABLET (FP) PO ONE (10:16)
--- NOTE | 2017-09-26 10:20 | PDOC ---
History of Present Illness - General Chief Complaint: Cold Symptoms Stated Complaint: CHEST PAIN, HEADACHE Time Seen by Provider: 09/26/17 09:50 History Source: Patient Exam Limitations: No Limitations - History of Present Illness Initial Comments: 09/26/17 10:17 21 yr female with cough fever, runny nose for 3 days no abd pain or nvd. LMP sep 02, 2017. no urinary complaints. 09/26/17 18:31 Past History - Past Medical History Allergies/Adverse Reactions: Allergies Allergy/AdvReac Type Severity Reaction Status Date / Time No Known Allergies Allergy Verified 09/26/17 09:47 Home Medications: Ambulatory Orders NK [No Known Home Medication] 09/26/17 Anemia: No Asthma: No COPD: No DVT: No Diabetes: No HTN: No - Surgical History Appendectomy: Yes - Immunization History TDAP Vaccination: Yes Immunization Up to Date: Yes - Suicide/Smoking/Psychosocial Hx Smoking Status: No Smoking History: Never smoked Have you smoked in the past 12 months: No Number of Cigarettes Smoked Daily: 1 Information on smoking cessation initiated: No Hx Alcohol Use: No Drug/Substance Use Hx: Yes (MARIJUANA) Substance Use Type: Marijuana Respiratory Specific PMHX - Complaint Specific PMHX Angina: No Bronchitis: No Pneumonia: No Pulmonary Embolus: No TB (Tuberculosis): No Review of Systems - Review of Systems Able to Perform ROS?: Yes Is the patient limited Green[place]ic proficient: No Constitutional: No: Symptoms Reported HEENTM: No: Symptoms Reported Respiratory: Yes: Cough *Physical Exam - Vital Signs Last Vital Signs Temp Pulse Resp BP Pulse Ox 98.8 F 84 16 157/85 100 09/26/17 09:35 09/26/17 09:35 09/26/17 09:35 09/26/17 09:35 09/26/17 09:35 - Physical Exam General Appearance: Yes: Nourished, Appropriately Dressed HEENT: positive: EOMI, REBECA, TMs Normal, Pharynx Normal Neck: positive: Supple. negative: Tender Respiratory/Chest: positive: Lungs Clear, Normal Breath Sounds. negative: Chest Tender Cardiovascular: positive: Regular Rhythm, Regular Rate Gastrointestinal/Abdominal: positive: Normal Bowel Sounds, Soft Musculoskeletal: positive: Normal Inspection Extremity: positive: Normal Capillary Refill, Normal Inspection, Normal Range of Motion Integumentary: positive: Normal Color, Dry, Warm Neurologic: positive: Fully Oriented, Alert, Normal Mood/Affect, Normal Response , Motor Strength 01/04 Medical Decision Making - Medical Decision Making 09/26/17 18:36 cc: cough for 3-4 days no fever no chest pain or shortness of breath stable vitals non toxic dc home with supportive care all inst discussed *DC/Admit/Observation/Transfer Diagnosis at time of Disposition: URI (upper respiratory infection) Qualifiers: URI type: unspecified viral URI Qualified Code(s): J06.9 - Acute upper respiratory infection, unspecified - Discharge Dispostion Disposition: HOME Condition at time of disposition: Good - Referrals Referrals: Nette Fields MD [Primary Care Provider] - - Patient Instructions Printed Discharge Instructions: DI for Viral Upper Respiratory Infection-Child Additional Instructions: drink pleanty of fluids increase vitamin c to boost immune system (orange juice, grapefruits) get any over the counter cough medicine you like such as Delsym or Robitussin or Sanjana Hunnewell cough and cold take ibuprofen 800mg ever 8hrs for pain or fever alterante with tylenol as needed follow with your doctor in 24-48hrs return to ER if worse - Post Discharge Activity Forms/Work/School Notes: Back to Work
--- NOTE | 2017-09-26 12:59 | EKG ---
Test Reason : Blood Pressure : / mmHG Vent. Rate : 082 BPM Atrial Rate : 082 BPM P-R Int : 118 ms QRS Dur : 094 ms QT Int : 372 ms P-R-T Axes : 030 071 048 degrees QTc Int : 434 ms POOR DATA QUALITY, INTERPRETATION MAY BE ADVERSELY AFFECTED NORMAL SINUS RHYTHM NORMAL ECG NO PREVIOUS ECGS AVAILABLE Confirmed by ERIN BEST MD ([id number]) on 09/26/2017 12:59:13 PM Referred By: Confirmed By:ERIN BEST MD
== END 2017-09-26 10:33 | disposition home or self-care (01) ==
LOC: JERFT 09:32
DX: J06.9 Acute upper respiratory infection, unspecified (principal); B97.89 Other viral agents as the cause of diseases classified elsewhere
CPT/HCPCS: 93005; 93010; 99281-25

== ENCOUNTER 2022-05-28 16:40 | Emergency (ER) | payer OTHER ==
[2022-05-28 16:51] VITALS: BP 126/84; PULSE 108; RESP 18; TEMP 100.5; BMI 38.9
[2022-05-28] MEDS ORDERED: SODIUM CHLORIDE 0.9% 500 ML INFUS.BAG IV ONE (18:00)
[2022-05-28] MEDS ORDERED: KETOROLAC TROMETHAMINE 30 MG/1 ML VIAL IVPUSH ONE (18:01)
[2022-05-28] MEDS ORDERED: METOCLOPRAMIDE HCL INJECTION 10 MG/2 ML VIAL IVPB ONE (18:01)
[2022-05-28] MEDS ORDERED: METOCLOPRAMIDE HCL INJECTION 10 MG/2 ML VIAL ONE (18:05)
[2022-05-28] MEDS ORDERED: KETOROLAC TROMETHAMINE 30 MG/1 ML VIAL ONE (18:05)
[2022-05-28 18:36] LABS: BASO % 0.3 % (0-2.0); EOS % 0.1 % (0-4.5); HEMATOCRIT 39.8 % (32.4-45.2); HEMOGLOBIN 13.5 GM/dL (10.7-15.3); LYMPH % 14.6 % (8-40); MCH 28.3 pg (25.7-33.7); MCHC 33.8 g/dl (32.0-36.0); MEAN CELL VOLUME 83.7 fl (80-96); MEAN PLT VOLUME 8.7 fl (7.5-11.1); MONO % 6.4 % (3.8-10.2); NEUT % 78.6 % (42.8-82.8); PLATELET COUNT 306 10^3/uL (134-434); RBC 4.76 M/mm3 (3.60-5.2); RDW 14.8 % (11.6-15.6); WHITE BLOOD COUNT 10.2 K/mm3 (4.0-10.0)
[2022-05-28 18:39] LABS: EPI CELLS >36 /uL (0-25.1); HYALINE CASTS 2 /uL (0-3.1); PH,URINE 5.5 (5.0-8.0); URINE APPEARANCE TURBID; URINE BACTERIA 583 /uL (0-1359); URINE BILIRUBIN NEGATIVE (NEGATIVE); URINE COLOR ORANGE; URINE GLUCOSE (UA) NEGATIVE (NEGATIVE); URINE KETONE 1+ (NEGATIVE); URINE LEUK ESTERASE NEGATIVE (NEGATIVE); URINE NITRITE NEGATIVE (NEGATIVE); URINE PROTEIN 1+ (NEGATIVE); URINE RBC 384 /uL (0-23.9); URINE WBC 38 /uL (0-25.8)
[2022-05-28 18:41] LABS: VENOUS O2 SATURATION 70.4 % (70-80); VENOUS PH 7.4 (7.310-7.410)
[2022-05-28 18:46] LABS: CALCIUM 8.9 mg/dL (8.5-10.1)
[2022-05-28 18:47] LABS: ALBUMIN 3.7 g/dl (3.4-5.0); BLOOD UREA NITROGEN 6.2 mg/dL (7-18)
[2022-05-28 18:49] LABS: CREATININE 0.7 mg/dL (0.55-1.3)
[2022-05-28 18:51] LABS: BILIRUBIN,TOTAL 0.7 mg/dL (0.2-1); INR 1.21 (0.83-1.09); PROTHROMBIN TIME (PATIENT) 13.9 SEC (9.7-13.0)
[2022-05-28 18:54] LABS: ACTIVATED PTT 34.6 SECONDS (25.2-36.5)
[2022-05-28 19:30] LABS: MAGNESIUM 1.9 mg/dL (1.8-2.4)
[2022-05-28 19:34] LABS: PHOSPHOROUS 3.5 mg/dL (2.5-4.9)
== END 2022-05-28 22:35 | disposition home or self-care (01) ==
LOC: JER 16:40
PROC: 3E0333Z Introduction of Anti-inflammatory into Peripheral Vein, Percutaneous Approach (ICD-10-PCS; principal; 2022-05-28)
PROC: 3E033GC Introduction of Other Therapeutic Substance into Peripheral Vein, Percutaneous Approach (ICD-10-PCS; 2022-05-28)
DX: R10.9 Unspecified abdominal pain (principal); R51.9 Headache, unspecified; M54.50 Low back pain, unspecified; R50.9 Fever, unspecified
CPT/HCPCS: 0241U-QW; 36415; 70450-TC; 71045-TC-FY; 74177-TC; 76830-TC; 80053; 81003; 82803; 83605; 83735; 84100; 84703; 85025; 85610; 85730; 86850; 86900; 86901; 87040; 87086; 87491; 87591; 93005; 93010; 99285-25; Q9967

== ENCOUNTER 2022-07-11 17:07 | Day surgery (SDC) | payer OTHER ==
[2022-07-11 18:08] VITALS: BMI 35.9
[2022-07-11] MEDS ORDERED: ACETAMINOPHEN INJECTION 100 ML IVPB ONE (20:14)
[2022-07-11 20:31] LABS: BASO % 1.1 % (0-2.0); EOS % 0.8 % (0-4.5); HEMATOCRIT 37.6 % (32.4-45.2); HEMOGLOBIN 12.6 GM/dL (10.7-15.3); LYMPH % 28.2 % (8-40); MCH 28.5 pg (25.7-33.7); MCHC 33.5 g/dl (32.0-36.0); MEAN CELL VOLUME 85.1 fl (80-96); MEAN PLT VOLUME 8.3 fl (7.5-11.1); MONO % 7.3 % (3.8-10.2); NEUT % 62.6 % (42.8-82.8); PLATELET COUNT 331 10^3/uL (134-434); RBC 4.42 M/mm3 (3.60-5.2); RDW 14.8 % (11.6-15.6); WHITE BLOOD COUNT 13.4 K/mm3 (4.0-10.0)
[2022-07-11] MEDS ORDERED: ACETAMINOPHEN 1000 MG/100 ML BAG IVPB ONE (20:32)
[2022-07-11 20:39] LABS: PROTHROMBIN TIME (PATIENT) 11.5 SEC (9.7-13.0)
[2022-07-11 20:41] LABS: ACTIVATED PTT 35.4 SECONDS (25.2-36.5)
[2022-07-11 20:58] LABS: ALBUMIN 3.9 g/dl (3.4-5.0); BLOOD UREA NITROGEN 8.7 mg/dL (7-18); CALCIUM 9.6 mg/dL (8.5-10.1)
[2022-07-11 21:00] LABS: CREATININE 0.6 mg/dL (0.55-1.3)
[2022-07-11 21:03] LABS: BILIRUBIN,TOTAL 0.3 mg/dL (0.2-1); TOT PROT 8.6 g/dl (6.4-8.2)
[2022-07-11 21:08] LABS: EPI CELLS 19 /uL (0-25.1); HYALINE CASTS 1 /uL (0-3.1); PH,URINE 6.5 (5.0-8.0); URINE APPEARANCE CLEAR; URINE BACTERIA 749 /uL (0-1359); URINE BILIRUBIN NEGATIVE (NEGATIVE); URINE COLOR YELLOW; URINE GLUCOSE (UA) NEGATIVE (NEGATIVE); URINE KETONE NEGATIVE (NEGATIVE); URINE LEUK ESTERASE 2+ (NEGATIVE); URINE NITRITE NEGATIVE (NEGATIVE); URINE PROTEIN NEGATIVE (NEGATIVE); URINE RBC 4 /uL (0-23.9); URINE UROBILINOGEN 0.2 mg/dL (0.2-1.0); URINE WBC 128 /uL (0-25.8)
[2022-07-11] MEDS ORDERED: morphine CARPU-JECT 4 MG/1 ML DISP.SYRIN IVPUSH ONE ×3 (21:29→22:37)
[2022-07-11] MEDS ORDERED: morphine SULFATE 4 MG/ML VIAL ONE (21:32)
[2022-07-11] MEDS ORDERED: CEFTRIAXONE 1 GM in DEXTROSE 5%-WATER - 100 ML IVPB ONE (21:45)
[2022-07-11] MEDS ORDERED: CEFTRIAXONE 1 GM/50 ML BAG ONE (21:49)
[2022-07-11] MEDS ORDERED: LACTATED RINGERS SOLUTION 1000 ML INFUS.BAG IV ONE (22:36)
[2022-07-11] MEDS ORDERED: ONDANSETRON 4 MG/2 ML VIAL IVPUSH PRN (23:33)
[2022-07-11] MEDS ORDERED: LACTATED RINGERS SOLUTION 1,000 ML IV SCH (23:45)
[2022-07-11] MEDS ORDERED: SUCCINYLCHOLINE CHLORIDE 200 MG/10 ML SYRINGE ONE (23:47)
[2022-07-11] MEDS ORDERED: PROPOFOL 20 ML ONE (23:47)
[2022-07-12] MEDS ORDERED: ONDANSETRON 4 MG/2 ML VIAL ONE (00:17)
[2022-07-12] MEDS ORDERED: ROCURONIUM BROMIDE 50 MG/5 ML SYRINGE ONE (00:31)
[2022-07-12] MEDS ORDERED: DEXAMETHASONE SOD PHOSPHATE 4 MG/1 ML VIAL ONE (00:32)
[2022-07-12] MEDS ORDERED: ceFAZolin SODIUM 1 GM VIAL ONE (00:47)
[2022-07-12] MEDS ORDERED: ceFAZolin SODIUM 1 GM VIAL IVPB ONE (00:50)
[2022-07-12] MEDS ORDERED: BUPIVACAINE HCL/PF 0.25% (2.5MG/ML) 10 ML VIAL IJ ONE ×2 (00:56)
[2022-07-12] MEDS ORDERED: NEOSTIGMINE METHYLSULFATE 0.5 MG/ML - 10 ML MDV ONE (01:08)
[2022-07-12] MEDS ORDERED: GLYCOPYRROLATE 0.2 MG/1 ML VIAL ONE (01:08)
[2022-07-12] MEDS ORDERED: ACETAMINOPHEN 325 MG TABLET (FP) PO PRN (01:31)
[2022-07-12] MEDS ORDERED: IBUPROFEN 800 MG/8 ML IJ IVPB PRN (01:31)
[2022-07-12] MEDS ORDERED: IBUPROFEN 600 MG TABLET (FP) PO PRN (01:31)
[2022-07-12] MEDS ORDERED: ACETAMINOPHEN INJECTION 100 ML IVPB ONE (01:39)
[2022-07-12] MEDS ORDERED: LACTATED RINGERS SOLUTION 1,000 ML IV SCH (01:45)
[2022-07-12 10:23] VITALS: BP 122/75; PULSE 81; RESP 16; TEMP 98.9
== END 2022-07-12 10:00 | disposition home or self-care (01) ==
LOC: JER 17:07 → JASU-SURG 22:18 → J3W 07-12 03:07 → JASU-SURG 07-12 10:00
PROVIDERS: ATTEND Obstetrics & Gynecology
PROC: 0UT64ZZ Resection of Left Fallopian Tube, Percutaneous Endoscopic Approach (ICD-10-PCS; 2022-07-11)
PROC: 10T24ZZ Resection of Products of Conception, Ectopic, Percutaneous Endoscopic Approach (ICD-10-PCS; principal; 2022-07-11 12:00)
DX: O00.101 Right tubal pregnancy without intrauterine pregnancy (principal)
CPT/HCPCS: 0241U-QW; 36415; 76817-TC; 80053; 81003; 84702; 85025; 85610; 85730; 86850; 86900; 86901; 87086; 88305-TC; 94760; 99285-25

== ENCOUNTER 2023-10-06 19:18 | Emergency (ER) | payer OTHER ==
[2023-10-06 19:29] VITALS: BP 122/76; PULSE 112; TEMP 99.8; BMI 39.4
[2023-10-06] MEDS ORDERED: ACETAMINOPHEN 500 MG TABLET (FP) PO ONE (19:50)
[2023-10-06] MEDS ORDERED: ACETAMINOPHEN 500 MG TABLET (FP) ONE (19:55)
[2023-10-06 20:46] LABS: BASO % 0.5 % (0-2.0); EOS % 0.9 % (0-4.5); HEMATOCRIT 37.8 % (32.4-45.2); HEMOGLOBIN 12.6 GM/dL (10.7-15.3); LYMPH % 7.1 % (8-40); MCH 28.7 pg (25.7-33.7); MCHC 33.3 g/dl (32.0-36.0); MEAN CELL VOLUME 86.3 fl (80-96); MEAN PLT VOLUME 8.8 fl (7.5-11.1); MONO % 8.3 % (3.8-10.2); NEUT % 83.2 % (42.8-82.8); PLATELET COUNT 259 10^3/uL (134-434); RBC 4.37 M/mm3 (3.60-5.2); RDW 13.8 % (11.6-15.6); WHITE BLOOD COUNT 14.7 K/mm3 (4.0-10.0)
[2023-10-06 20:58] LABS: CALCIUM 8.7 mg/dL (8.5-10.1)
[2023-10-06 20:59] LABS: ALBUMIN 3.7 g/dl (3.4-5.0); BLOOD UREA NITROGEN 5.6 mg/dL (7-18)
[2023-10-06 21:02] LABS: CREATININE 0.6 mg/dL (0.55-1.3)
[2023-10-06 21:04] LABS: BILIRUBIN,TOTAL 0.7 mg/dL (0.2-1); TOT PROT 7.7 g/dl (6.4-8.2)
[2023-10-06 21:55] VITALS: RESP 20
== END 2023-10-06 21:55 | disposition home or self-care (01) ==
LOC: JER 19:18
DX: R07.9 Chest pain, unspecified (principal); R42 Dizziness and giddiness; R06.02 Shortness of breath; U07.1 COVID-19
CPT/HCPCS: 0241U-QW; 36415; 71046-TC-FY; 80053; 84484; 84703; 85025; 93005; 93010; 99285-25

== ENCOUNTER 2023-11-04 09:11 | Emergency (ER) | payer OTHER ==
[2023-11-04 09:21] VITALS: BP 133/70; PULSE 82; RESP 18; TEMP 98.6; BMI 39.4
[2023-11-04] MEDS ORDERED: ACETAMINOPHEN 325 MG TABLET (FP) ONE (10:11)
[2023-11-04] MEDS: ACETAMINOPHEN 500 MG TABLET (FP) PO ONE (10:15)
[2023-11-04 11:01] LABS: EPI CELLS >36 /uL (0-25.1); HYALINE CASTS 0 /uL (0-3.1); PH,URINE 5.5 (5.0-8.0); URINE APPEARANCE Error; URINE BACTERIA 172 /uL (0-1359); URINE BILIRUBIN NEGATIVE (NEGATIVE); URINE COLOR YELLOW; URINE GLUCOSE (UA) NEGATIVE (NEGATIVE); URINE KETONE NEGATIVE (NEGATIVE); URINE LEUK ESTERASE TRACE (NEGATIVE); URINE NITRITE NEGATIVE (NEGATIVE); URINE PROTEIN NEGATIVE (NEGATIVE); URINE UROBILINOGEN 0.2 mg/dL (0.2-1.0); URINE WBC 23 /uL (0-25.8)
[2023-11-04 11:04] LABS: URINE RBC 23.7 /uL (0-23.9)
[2023-11-04 11:09] LABS: HCG,QUALITATIVE URINE Negative
[2023-11-04 11:49] LABS: SYPHILIS W/ RPR CONF NON-REACTIVE (NONREACTIVE)
[2023-11-04] MEDS ORDERED: metroNIDAZOLE 250 MG TABLET ONE (12:07)
[2023-11-04] MEDS ORDERED: DOXYCYCLINE HYCLATE 100 MG CAPSULE PO ONE (12:07)
[2023-11-04] MEDS ORDERED: FLUCONAZOLE 150 MG TABLET PO ONE (12:07)
[2023-11-04] MEDS ORDERED: cefTRIAXone SODIUM 1 GM VIAL ONE ×2 (12:07→12:26)
[2023-11-04 12:18] LABS: HIV INTERPRETATION NEGATIVE (NEGATIVE)
[2023-11-04] MEDS: FLUCONAZOLE 50 MG TABLET PO ONE (12:37)
[2023-11-04] MEDS: metroNIDAZOLE 500 MG TABLET PO ONE (12:37)
[2023-11-04] MEDS: DOXYCYCLINE HYCLATE 100 MG CAPSULE PO ONE (12:37)
[2023-11-04] MEDS ORDERED: ONDANSETRON *ODT* 4 MG TABLET ONE (12:38)
[2023-11-04] MEDS: ONDANSETRON *ODT* 4 MG TABLET SL ONE (12:40)
== END 2023-11-04 13:08 | disposition home or self-care (01) ==
LOC: JER 09:11
DX: R10.32 Left lower quadrant pain (principal); R25.2 Cramp and spasm; M54.50 Low back pain, unspecified
CPT/HCPCS: 36415; 76830-TC; 81003; 84703; 86704; 86706; 86780; 86803; 87340; 87389; 87491; 87591; 87661; 99284-25; Q0162

== ENCOUNTER 2024-04-07 01:46 | Emergency (ER) | payer OTHER ==
[2024-04-07 02:09] VITALS: BP 126/83; PULSE 68; RESP 18; TEMP 98; BMI 36.6
[2024-04-07] MEDS ORDERED: ONDANSETRON *ODT* 4 MG TABLET ONE (02:53)
[2024-04-07] MEDS: ONDANSETRON 4 MG TABLET PO ONE (02:53)
[2024-04-07] MEDS: ONDANSETRON *ODT* 4 MG TABLET SL ONE (02:57)
== END 2024-04-07 05:21 | disposition home or self-care (01) ==
LOC: JER 01:46
DX: R11.2 Nausea with vomiting, unspecified (principal); R19.7 Diarrhea, unspecified; R10.84 Generalized abdominal pain
CPT/HCPCS: 99283-25; Q0162